=== PATIENT | female | born 1960 | race African-American/Black ===

== ENCOUNTER → 2019-11-18 | Outpatient (CLI) | payer OTHER ==
--- NOTE | 2019-11-18 12:14 | RAD ---
EXAM: Right hip, 2 views. HISTORY: Pain. COMPARISON: None. FINDINGS: 2 views of the right hip are obtained. There is no fracture, dislocation or subluxation. IMPRESSION: No acute osseous finding. Electronically signed by: Gale Gutierrez MD (11/18/2019 12:11 PM) [place] [id number]
== END | disposition home or self-care (01) ==
LOC: DXRAD 11:40
PROVIDERS: ATTEND Psychiatry & Neurology Neurology
DX: M25.551 Pain in right hip (principal)
CPT/HCPCS: 73502